=== PATIENT | female | born 1955 | race Caucasian/White ===

== ENCOUNTER → 2017-08-13 | Outpatient (CLI) | payer OTHER ==
[~2017-08-13] MED LIST: AMLO5 PO; ASPI81CH PO; ATOR40TA PO; BISHYD2.5 PO; CALCIUM PO; FIBER CHOICE; FURO40 PO; MINITRAN; MULTI VIT; PIOG30 PO; VALS80 PO; VIT D PO
[2017-08-13 20:39] LABS: Stool Occult Bld Immuno 1 Negative (NEGATIVE)
== END | disposition home or self-care (01) ==
LOC: LAB SHORT 15:34 → LAB 15:34
PROVIDERS: Family Medicine
DX: Z12.11 Encounter for screening for malignant neoplasm of colon (principal); M23.92 Unspecified internal derangement of left knee
CPT/HCPCS: G0328

== ENCOUNTER 2018-12-08 11:04 | Observation (INO) | payer OTHER ==
[~2018-12-08] VITALS: Ht 167.6 cm; Wt 93.8 kg
[~2018-12-08 11:04] MED LIST changes: -ASPI81CH PO; +Aspirin EC81 MG PO
[2018-12-08] MEDS ORDERED: METF500C PO ×2 (11:29→16:02)
[2018-12-08 12:25] LABS: BASOPHILS ABSOLUTE AUTO 0.08 K/mm3 (0.00-0.23); BASOPHILS PERCENT AUTO 1 % (0-2); EOSINOPHILS ABSOLUTE AUTO 0.71 K/mm3 (0.00-0.68); EOSINOPHILS PERCENT AUTO 7 % (0-6); Hematocrit 43.3 % (33.0-51.0); Hemoglobin 13.7 g/dL (11.5-16.0); IMMATURE GRAN ABSOLUTE AUTO 0.11 K/mm3 (0.00-0.10); IMMATURE GRAN PERCENT AUTO 1 % (0-1); LYMPHOCYTES ABSOLUTE AUTO 2.09 K/mm3 (0.84-5.20); LYMPHOCYTES PERCENT AUTO 20 % (21-46); MONOCYTES ABSOLUTE AUTO 1.07 K/mm3 (0.16-1.47); MONOCYTES PERCENT AUTO 10 % (4-13); Mean Corpuscular HGB 27.6 pg (26.0-34.0); Mean Corpuscular HGB Conc 31.6 g/dL (31.5-36.5); Mean Corpuscular Volume 87 fL (80-100); Mean Platelet Volume 10.9 fL (9.1-12.4); NEUTROPHILS ABSOLUTE AUTO 6.27 K/mm3 (1.96-9.15); NEUTROPHILS PERCENT AUTO 61 % (41-73); Platelet Count 365 K/mm3 (150-400); RDW Coefficient Variation 14.5 % (11.7-14.2); RDW Standard Deviation 46.4 fL (35.1-46.3); Red Blood Cell Count 4.97 M/mm3 (3.80-5.20); White Blood Cell Count 10.33 K/mm3 (4.00-11.30)
[2018-12-08 12:28] LABS: Source, Urine Clean Catch
[2018-12-08 12:34] LABS: Alanine Aminotransfer (ALT/SGP 34 U/L (12-78); Albumin, Blood 3.3 g/dL (3.4-5.0); Albumin/Globulin Ratio 0.9 (0.8-1.8); Alk Phos 74 U/L (50-136); Anion Gap 5 mmol/L (6-16); Aspartate Aminotrans (AST/SGOT 15 U/L (12-37); Bilirubin, Total 1.2 mg/dL (0.1-1.0); Blood Urea Nitrogen 11 mg/dL (8-24); CO2, Blood 31 mmol/L (21-32); Calcium, Blood 9.2 mg/dL (8.5-10.1); Chloride, Blood 101 mmol/L (98-108); Creatinine, Blood 0.79 mg/dL (0.40-1.00); Globulin, Blood 3.6 g/dL (2.2-4.0); Glomerular Filtration Rate >60 (60-); Glucose, Blood 92 mg/dL (70-99); Potassium, Blood 3.9 mmol/L (3.5-5.5); Sodium, Blood 137 mmol/L (136-145); Total Protein, Blood 6.9 g/dL (6.4-8.2); Troponin I 0.033 ng/mL (0.000-0.040)
[2018-12-08 12:35] LABS: Bilirubin, Urine Neg (Neg); Blood, Urine Neg (Neg); Glucose Qualitative, Urine Neg (Neg); Ketones, Urine Neg (Neg); Leukocyte Esterase, Urine 1+ (Neg); Nitrite, Urine Neg (Neg); Protein, Urine Neg (Neg); Urobilinogen, Urine NORM (Normal)
[2018-12-08 13:32] LABS: Appearance, Urine Clear (Clear); Color, Urine Yellow (P-Yellow)
[2018-12-08 13:35] LABS: Red Blood Cells, Urine Not Seen /hpf (0-2); Squamous Epithelial Cells Rare /hpf (Few); White Blood Cells, Urine Rare /hpf (0-5)
[2018-12-08 13:36] LABS: Bacteria Few /hpf
[2018-12-08] MEDS ORDERED: METO50ER PO (16:00)
[2018-12-08] MEDS ORDERED: LOSARTAN POTASS50 MG PO (16:00)
[2018-12-08] MEDS ORDERED: FUROSEMIDE20 MG PO (16:00)
[2018-12-08] MEDS ORDERED: FISH OIL 1,001000 MG PO (16:02)
[2018-12-08] MEDS ORDERED: THERA1 EACH PO (16:02)
[2018-12-08] MEDS ORDERED: Oyster Shell C500 MG PO (16:03)
[2018-12-08 16:14] LABS: Magnesium, Blood 1.9 mg/dL (1.6-2.4); Phosphorus, Blood 3.7 mg/dL (2.5-4.9)
[2018-12-08 17:22] LABS: U Amphetamine Screen Not Detected; U Barbituate Screen Not Detected; U Benzodiazapine Screen Not Detected; U Buprenorphine Screen Not Detected; U Cannabinoids Screen Not Detected; U Cocaine Screen Not Detected; U Methadone Screen Not Detected; U Methamphetamine Screen Not Detected; U Opiates Screen Not Detected; U Oxycodone Screen Not Detected; U Phencyclidine Screen Not Detected; U Propoxyphene Screen Not Detected
--- NOTE | 2018-12-08 18:15 | NUR ---
PT ARRIVED TO ROOM FROM ED AT 1705 AND TRANSFERRED SELF TO BED. HAS DENIED FEELING DIZZY OR LIGHTHEADED SINCE ARRIVAL. APPEARS STABLE ON FEET WHEN MOVING ABOUT BUT ENCOURAGED TO CALL FOR ASSISTANCE TO BATHROOM DUE TO HISTORY OF SYNCOPAL EPISODES. INTAKE BEING COMPLETED.
[2018-12-08] MEDS ORDERED: FIBER GUMMIES2 GM PO (18:29)
--- NOTE | 2018-12-09 05:49 | NUR ---
SHIFT SUMMARY: NO ACUTE CHANGES OVER NIGHT. PT DENIES DIZZINESS. STEADY ON FEET UPON STANDING. 1 SBA TO BATHROOM. FLUIDS INFUSING. NSR ON TELE. CBG'S STABLE. NO CONCERNS AT THIS TIME.
--- NOTE | 2018-12-09 10:59 | NUR ---
ORTHOSTATIC VS DONE 12/08/18 AT 1838. CHARTING IN NOTES BECAUSE THEY WERE DIFFICULT TO FIND IN THE CHART. LYING: B/P 125/80 HR 75 SITTING: B/P 135/87 HR 78 STANDING B/P 135/96 HR 92
--- NOTE | 2018-12-09 11:15 | NUR ---
ORTHOSTATIC VS DONE ON 12/09/18 AT 1100 LYIN/83 HR 77 SITTIN/86 HR 83 STANDIN/89 HR 86
--- NOTE | 2018-12-09 18:30 | NUR ---
PATIENT A/OX4, UP WITH SBA DUE TO RECENT SYNCOPAL EPISODES. CARDIOLOGY TO CONSULT IN AM. VSS, ORHTOSTATIC VS NEGATIVE TODAY. LUNGS CLEAR, ON RA. CALM AND COOPERATIVE WITH CARE, CALLS APPROPRIATELY FOR ASSISTANCE. DENIES ANY PAIN OR NAUSEA. CONTINENT OF BOWEL AND BLADDER. NS @ 75ML/HR INFUSING TO L FA IV. SR IN THE 60'S ON TELE, NO ACUTE CHANGES THIS SHIFT.
--- NOTE | 2018-12-10 05:56 | NUR ---
HAS BEEN RESTING QUIETLY WITH FEW NOTED INTERRUPTIONS. CALL LIGHT IN REACH, WILL CONTINUE TO MONITOR.
[2018-12-10] MEDS ORDERED: Bisoprolol Fumar5 MG PO (11:43)
--- NOTE | 2018-12-10 12:18 | NUR ---
DISCHARGE DISCHARGE INSTRUCTIONS, MEDICATION LIST AND FOLLOW UP APPOINTMENTS REVIEWED WITH PT. PT STATES THAT SHE HAS AN APPOINTMENT WITH HER PCP ON DecemberDecember. QUESTIONS/CONCERNS ANSWERED. PT VERBALLY INDICATES UNDERSTANDING OF ALL INSTRUCTIONS RECEIVED. PT ESCORTED OUT BY [facility]
--- NOTE | 2018-12-10 12:58 | NUR ---
Stress test under the supervision of Prabhu Metcalf MD performed.
== END 2018-12-10 13:03 | disposition home or self-care (01) ==
LOC: ER 11:04 → MEDS 11:05
PROVIDERS: Emergency Medicine; Nurse Practitioner Acute Care; ADMIT Internal Medicine
DX: R55 Syncope and collapse (principal); I10 Essential (primary) hypertension; E11.9 Type 2 diabetes mellitus without complications; E78.5 Hyperlipidemia, unspecified; I25.10 Atherosclerotic heart disease of native coronary artery without angina pectoris; I25.2 Old myocardial infarction; Z95.5 Presence of coronary angioplasty implant and graft; Z87.891 Personal history of nicotine dependence; Z79.899 Other long term (current) drug therapy; Z79.84 Long term (current) use of oral hypoglycemic drugs
CPT/HCPCS: 36415; 70450; 80053; 81001; 82550; 82947; 83605; 83735; 84100; 84484; 85025; 87086; 93005; 93010; 93017; 93306; 93880; 96372; 99285-25; G0378; J1650; J7030

== ENCOUNTER → 2020-03-29 | Outpatient (CLI) | payer MEDICARE ==
[~2020-03-29] MED LIST changes: +AIRDUO RESPICL1 EAC5 INH; +ASPIR 8181 MG PO; +BENADRYL25 MG PO; +Bisoprolol Fumar5 MG PO; +CLARITIN-D 121 EAC1 PO; +EPIPEN 2-P0.3 MG/0.1; +EVENING PRIMROSE PO; +FIBER GUMMIES2 GM PO; +FISH OIL 1,001000 MG PO; +FUROSEMIDE20 MG PO; +LOSA50 PO; +LOSARTAN POTASS50 MG PO; +METF500 PO; +METF500C PO; +METO25ER PO; +Oyster Shell C500 MG PO; +POTCHL20ER PO; +THERA-D2000 UNIT PO; +THERA1 EACH PO
== END | disposition home or self-care (01) ==
LOC: LAB 16:13 → LAB SHORT 16:13
DX: R31.9 Hematuria, unspecified (principal)
CPT/HCPCS: 87086

== ENCOUNTER 2020-04-23 09:50 | Day surgery (SDC) | payer MEDICARE ==
[~2020-04-23] VITALS: Ht 167.6 cm; Wt 84.4 kg
[~2020-04-23 09:50] MED LIST changes: -ASPIR 8181 MG PO; -BENADRYL25 MG PO; -EPIPEN 2-P0.3 MG/0.1; -EVENING PRIMROSE PO; -METF500 PO
--- NOTE | 2020-04-23 12:08 | NUR ---
04/23/20 120 Hina Begum PT. VERBALIZES BEING ABLE TO SEE BETTER. HER OS IS TEARING AT TIMES. PT. DRINKING CRANBERRY JUICE & EATING SHORTBREAD COOKIES.
[2020-05-06] MEDS ORDERED: CLARITIN-D 121 EAC1 PO (10:34)
[2020-05-06] MEDS ORDERED: LOSA50 PO (10:34)
[2020-05-06] MEDS ORDERED: METF500 PO (10:35)
[2020-05-06] MEDS ORDERED: ASPIR 8181 MG PO (10:35)
[2020-05-06] MEDS ORDERED: ATOR40TA PO (10:35)
[2020-05-06] MEDS ORDERED: BENADRYL25 MG PO (10:36)
[2020-05-06] MEDS ORDERED: EVENING PRIMROSE PO (10:36)
[2020-05-06] MEDS ORDERED: EPIPEN 2-P0.3 MG/0.1 (10:36)
[2020-05-06] MEDS ORDERED: AIRDUO RESPICL1 EAC5 INH (10:37)
== END 2020-04-23 12:25 | disposition home or self-care (01) ==
LOC: ORSCSDS 09:50
PROVIDERS: Ophthalmology
PROC: 08RK3JZ Replacement of Left Lens with Synthetic Substitute, Percutaneous Approach (ICD-10-PCS; principal; 2020-04-23 11:15)
DX: H25.12 Age-related nuclear cataract, left eye (principal); I10 Essential (primary) hypertension; J44.9 Chronic obstructive pulmonary disease, unspecified; J45.909 Unspecified asthma, uncomplicated; E11.36 Type 2 diabetes mellitus with diabetic cataract; Z79.82 Long term (current) use of aspirin; Z79.84 Long term (current) use of oral hypoglycemic drugs; Z79.899 Other long term (current) drug therapy; Z87.891 Personal history of nicotine dependence
CPT/HCPCS: 82947; J2001; J2250; J3010; J3301; J7040; V2632

== ENCOUNTER 2020-05-14 07:26 | Day surgery (SDC) | payer MEDICARE ==
[~2020-05-14] VITALS: Ht 167.6 cm; Wt 85.3 kg
[~2020-05-14 07:26] MED LIST changes: +ASPIR 8181 MG PO; +BENADRYL25 MG PO; +EPIPEN 2-P0.3 MG/0.1; +EVENING PRIMROSE PO; +METF500 PO
== END 2020-05-14 09:36 | disposition home or self-care (01) ==
LOC: ORSCSDS 07:26
PROVIDERS: Ophthalmology
PROC: 08RJ3JZ Replacement of Right Lens with Synthetic Substitute, Percutaneous Approach (ICD-10-PCS; principal; 2020-05-14 08:45)
DX: H25.11 Age-related nuclear cataract, right eye (principal); J44.9 Chronic obstructive pulmonary disease, unspecified; I10 Essential (primary) hypertension; K21.9 Gastro-esophageal reflux disease without esophagitis; E11.36 Type 2 diabetes mellitus with diabetic cataract; J45.909 Unspecified asthma, uncomplicated; Z79.899 Other long term (current) drug therapy; Z79.84 Long term (current) use of oral hypoglycemic drugs
CPT/HCPCS: 82947; A9270; J2001; J2250; J3010; J3301; J7040; V2632

== ENCOUNTER → 2021-04-15 | Outpatient (CLI) | payer MEDICARE ==
[2021-04-15 15:12] LABS: Stool Occult Bld Immuno 1 Negative (NEGATIVE)
== END | disposition home or self-care (01) ==
LOC: LAB 10:55 → LAB SHORT 10:55
PROVIDERS: Family Medicine
DX: Z12.11 Encounter for screening for malignant neoplasm of colon (principal); E78.5 Hyperlipidemia, unspecified; E11.9 Type 2 diabetes mellitus without complications; R79.9 Abnormal finding of blood chemistry, unspecified
CPT/HCPCS: 82274

== ENCOUNTER → 2022-11-23 | Outpatient (CLI) | payer MEDICARE ==
[2022-11-24 10:53] LABS: Stool Occult Bld Immuno 1 Negative (NEGATIVE)
== END ==
LOC: LAB 11:15 → LAB SHORT 11:15
PROVIDERS: Family Medicine
DX: Z12.11 Encounter for screening for malignant neoplasm of colon (principal)
CPT/HCPCS: 82274

== ENCOUNTER → 2023-11-29 | Outpatient (CLI) | payer MEDICARE ==
[2023-11-30 12:36] LABS: Stool Occult Bld Immuno 1 Negative (NEGATIVE)
== END ==
LOC: LAB SHORT 11:30 → LAB 11:30 → LAB FUT 11-23 12:55 → EDSTATUS 11-23 12:55
PROVIDERS: Family Medicine
DX: Z44.8 Encounter for fitting and adjustment of other external prosthetic devices (principal); Z12.11 Encounter for screening for malignant neoplasm of colon
CPT/HCPCS: G0328

== ENCOUNTER → 2024-12-21 | Outpatient (CLI) | payer MEDICARE ==
[2024-12-21 20:33] LABS: Creatinine, Urine Random 108.0 mg/dL (27.00-270.00); Microalb/Creat Ratio UR, Rand 109.259 mg/g (0.000-30.000); Microalbumin, Random Urine 118.0 mg/L (0.000-20.000)
== END | disposition home or self-care (01) ==
LOC: LAB 11:07 → LAB SHORT 11:07
PROVIDERS: Family Medicine
DX: E11.69 Type 2 diabetes mellitus with other specified complication (principal)
CPT/HCPCS: 82043; 82570